=== PATIENT | male | born 2000 | race African-American/Black ===

== ENCOUNTER 2022-01-14 18:29 | Observation (INO) | payer BC, OTHER ==
[2022-01-14 19:36] LABS: #Eosinphils 0.2 10x3/uL (0.0-0.5); #Monocytes 1.3 10x3/uL (0.0-1.1); #Neutrophils 16.9 10x3/uL (1.5-8.4); %Basophils 0.2 % (0.0-2.0); %Eosinophils 0.8 % (0.0-6.0); %Lymphocytes 7.1 % (18.0-47.0); %Monocytes 6.7 % (0.0-10.0); %Neutrophils 84.7 % (40.0-75.0); Mean Corpuscular HGB CONC 33.8 g/dL (32.0-36.0); Mean Corpuscular Hemoglobin 29.5 pg (27.0-33.0); Mean Corpuscular Volume 87.1 fl (81.2-95.1); Mean Platelet Volume 10.5 fl (7.4-10.4); Platelet Count 315 10x3/uL (150-450); RBC Distribution Width 12.9 % (11.5-14.5); Red Blood Cell (RBC) Count 5.43 10x6/uL (4.32-5.72); White Blood Cell (WBC) Count 19.9 10x3/uL (3.5-10.5)
[2022-01-14 19:47] LABS: ALT (SGPT) 27 U/L (8-55); AST (SGOT) 37 U/L (5-34); Albumin 5.7 g/dL (3.5-5.0); Alkaline Phosphatase 75 U/L (40-110); Anion Gap 21 mmol/L (10-20); BUN (Urea Nitrogen) 27 mg/dL (8.9-20.6); Bilirubin, Total 1.1 mg/dL (0.2-1.2); CK (CPK) 825 U/L (30-200); Calc. Creatinine Clearance 0 mL/min (70-130); Calcium 10.6 mg/dL (7.8-10.44); Carbon Dioxide 23 mmol/L (22-29); Chloride 101 mmol/L (98-107); Estimated GFR 36; Globulin 3.6 g/dL (2.4-3.5); Glucose 89 mg/dL (70-105); Potassium 3.7 mmol/L (3.5-5.1); Protein, Total 9.3 g/dL (6.0-8.3); Sodium 141 mmol/L (136-145)
[2022-01-14] MEDS ORDERED: Zolpidem Tartrate 5 MG TAB PO PRN (20:53)
[2022-01-14] MEDS ORDERED: Guaifenesin DM 100-10/5 ML UDCUP PO PRN (20:53)
[2022-01-14] MEDS ORDERED: Acetaminophen 325 MG TAB PO PRN (20:53)
[2022-01-14] MEDS ORDERED: Ondansetron PF 4 MG/2 ML Vial IVP PRN (20:53)
[2022-01-14] MEDS ORDERED: Senokot S 8.6-50 MG TAB PO PRN (20:53)
[2022-01-14] MEDS ORDERED: Calcium Carbonate 500 MG ChewTAB PO PRN (20:53)
[2022-01-14] MEDS ORDERED: Nicotine 14 MG PATCH TD SCH (21:00)
[2022-01-14] MEDS ORDERED: Lactated Ringer's 1,000 ML IV SCH (21:00)
[2022-01-14 22:01] VITALS: BMI 26.6
[2022-01-14] MEDS: Famotidine/PF 20 mg/2ml Vial SLOW IVP SCH (22:10)
[2022-01-14] MEDS: Lactated Ringer's 1,000 ML IV SCH (22:10)
[2022-01-14 23:36] LABS: SARS-CoV-2 NAA Rapid Test Not Detected (NotDetected)
[2022-01-15 04:48] LABS: #Monocytes 1.5 10x3/uL (0.0-1.1); #Neutrophils 9.2 10x3/uL (1.5-8.4); %Basophils 0.3 % (0.0-2.0); %Eosinophils 0.2 % (0.0-6.0); %Lymphocytes 24.7 % (18.0-47.0); %Monocytes 10.6 % (0.0-10.0); %Neutrophils 63.8 % (40.0-75.0); Hemoglobin 13.3 g/dL (13.5-17.5); Mean Corpuscular HGB CONC 32.8 g/dL (32.0-36.0); Mean Corpuscular Hemoglobin 28.9 pg (27.0-33.0); Mean Corpuscular Volume 88.1 fl (81.2-95.1); Platelet Count 279 10x3/uL (150-450); Red Blood Cell (RBC) Count 4.61 10x6/uL (4.32-5.72); White Blood Cell (WBC) Count 14.5 10x3/uL (3.5-10.5)
[2022-01-15 04:56] LABS: ALT (SGPT) 21 U/L (8-55); AST (SGOT) 36 U/L (5-34); Albumin 4.4 g/dL (3.5-5.0); Alkaline Phosphatase 57 U/L (40-110); Anion Gap 11 mmol/L (10-20); BUN (Urea Nitrogen) 21 mg/dL (8.9-20.6); Bilirubin, Total 1.5 mg/dL (0.2-1.2); CK (CPK) 1163 U/L (30-200); Calc. Creatinine Clearance 94 mL/min (70-130); Calcium 9.5 mg/dL (7.8-10.44); Carbon Dioxide 28 mmol/L (22-29); Chloride 102 mmol/L (98-107); Estimated GFR 76; Globulin 2.9 g/dL (2.4-3.5); Glucose 82 mg/dL (70-105); Potassium 3.6 mmol/L (3.5-5.1); Protein, Total 7.3 g/dL (6.0-8.3); Sodium 137 mmol/L (136-145)
[2022-01-15] MEDS: Lactated Ringer's 1,000 ML IV SCH ×2 (08:37→16:18)
[2022-01-15] MEDS: Famotidine/PF 20 mg/2ml Vial SLOW IVP SCH (08:39)
[2022-01-15 11:36] LABS: Anion Gap 15 mmol/L (10-20); BUN (Urea Nitrogen) 18 mg/dL (8.9-20.6); Calc. Creatinine Clearance 124 mL/min (70-130); Calcium 9.3 mg/dL (7.8-10.44); Carbon Dioxide 23 mmol/L (22-29); Chloride 104 mmol/L (98-107); Estimated GFR 106; Glucose 89 mg/dL (70-105); Potassium 3.8 mmol/L (3.5-5.1); Sodium 138 mmol/L (136-145)
[2022-01-15 12:16] LABS: Bilirubin Neg (Negative); Blood, Urine Negative (Negative); Clarity Clear (Clear); Glucose, Urine (Dipstick) Normal (Negative); Ketone, Urine 5 mg/dL (Negative); Leukocyte Negative (Negative); Nitrite Negative (Negative); Protein, Urine (Dipstick) Negative (Neg-Trace); Urobilinogen Normal mg/dL (Less than 2)
[2022-01-15 13:04] LABS: RBC/HPF None Seen HPF (0-3); Renal Epithelial 0-3 HPF (None Seen)
[2022-01-15 13:05] LABS: Mucous/LPF 1+ LPF (<2+); Squamous Epithelial None Seen HPF (0-3)
[2022-01-15 16:44] VITALS: BP 119/58; TEMP 98.7
== END 2022-01-15 16:47 | disposition home or self-care (01) ==
LOC: CSHERS 18:29 → CSHTELE 21:46
PROVIDERS: ADMIT Internal Medicine; ATTEND Internal Medicine
DX: T73.3XXA Exhaustion due to excessive exertion, initial encounter (principal); T67.9XXA Effect of heat and light, unspecified, initial encounter; M62.82 Rhabdomyolysis; N17.9 Acute kidney failure, unspecified; E86.0 Dehydration; D72.829 Elevated white blood cell count, unspecified; F12.10 Cannabis abuse, uncomplicated; F17.210 Nicotine dependence, cigarettes, uncomplicated; Z20.822 Contact with and (suspected) exposure to COVID-19; X30.XXXA Exposure to excessive natural heat, initial encounter
CPT/HCPCS: 36415; 80053; 81001; 82550; 85025; 96360; 96361; 96374; 96376; G0378; J7120; S0028; U0002